=== PATIENT | female | born 1965 | race Caucasian/White ===

== ENCOUNTER 2017-05-24 17:55 | Emergency (ER) | payer OTHER ==
[2017-05-24 18:00] LABS: Glucose,Whole Blood 141 mg/dL (75-99)
[2017-05-24] MEDS ORDERED: FAMOTIDINE 20 MG/2 ML VIAL IV STA (18:00)
--- NOTE | 2017-05-24 18:04 | ED ---
General Adult HPI - General Stated complaint: Allergic Reaction Time Seen by Provider: 05/24/17 17:55 Source: RN notes reviewed - History of Present Illness Initial comments: This a 52-year-old female has a past medical history significant for an reflect reactions to bee stings. Patient states today she got stung by a bee but she had no EpiPen is because of their expense. Patient states she called EMS when EMS arrived they gave her 50 of Benadryl IV even though she took 50 orally. Patient also got 0.25 of subcu epinephrine and Solu-Medrol. Patient also received an albuterol treatment. Patient states she had tightness in her chest like always and she had a rash throughout her whole body. Patient states she does feel better now but she is extremely drowsy from the Benadryl. Patient denies any chest pain. Patient denies any shortness of breath currently. Patient denies abdominal pain. Patient denies any nausea or vomiting currently. Patient denies headache patient denies numbness weakness. Patient denies lightheadedness or dizziness. - Related Data Home Medications Medication Instructions Recorded Confirmed ALPRAZolam [ALPRAZolam] 1 mg PO BID 10/16/16 05/24/17 Dextroamphetamine/Amphetamine 20 mg PO TID 10/16/16 05/24/17 [Adderall] Sertraline HCl [Sertraline HCl] 100 mg PO DAILY 10/16/16 05/24/17 Albuterol Inhaler [Ventolin Hfa 1 - 2 puff INHALATION RT-Q6H PRN 05/24/17 Inhaler] Estradiol [Estrace] 1 mg PO DIRECTED 05/24/17 05/24/17 buPROPion SR [Wellbutrin Sr] 100 mg PO DAILY 05/24/17 05/24/17 Previous Rx's Medication Instructions Recorded EPINEPHrine [Epipen 2-Simba] 0.3 mg IM ONCE PRN #2 ml 05/24/17 predniSONE 40 mg PO DAILY #8 tab 05/24/17 Allergies Allergy/AdvReac Type Severity Reaction Status Date / Time No Known Allergies Allergy Verified 10/16/16 09:48 Review of Systems ROS Statement: Those systems with pertinent positive or pertinent negative responses have been documented in the HPI. ROS Other: All systems not noted in ROS Statement are negative. Past Medical History Past Medical History: No Reported History, Cancer Additional Past Medical History / Comment(s): OVARIAN AND SKIN CANCER History of Any Multi-Drug Resistant Organisms: None Reported Past Surgical History: Bladder Surgery, Section, Hysterectomy, Tonsillectomy, Uterine Ablation Additional Past Surgical History / Comment(s): SQUAMOUS CELL LLE REMOVED. COLONOSCOPY Past Anesthesia/Blood Transfusion Reactions: No Reported Reaction Past Psychological History: ADD/ADHD, Anxiety, Depression Smoking Status: Former smoker Past Alcohol Use History: Occasional Additional Past Alcohol Use History / Comment(s): QUIT SMOKING A TEENAGER. HAS 1 -2 BEERS NIGHTLY Past Drug Use History: None Reported - Past Family History Mother Family Medical History: Cancer Sister(s) Family Medical History: Cancer Brother(s) Family Medical History: Cancer General Exam - General Exam Comments Initial Comments: GENERAL: Patient is well-developed and well-nourished. Patient is nontoxic and well- hydrated and is in moderate distress. Patient is very tired. ENT: Neck is soft and supple. No significant lymphadenopathy is noted. Oropharynx is clear. Moist mucous membranes. Neck has full range of motion without eliciting any pain. EYES: The sclera were anicteric and conjunctiva were pink and moist. Extraocular movements were intact and pupils were equal round and reactive to light. Eyelids were unremarkable. PULMONARY: Unlabored respirations. Good breath sounds bilaterally. No audible rales rhonchi or wheezing was noted. CARDIOVASCULAR: There is a regular rate and rhythm without any murmurs gallops or rubs. ABDOMEN: Soft and nontender with normal bowel sounds. No palpable organomegaly was noted. There is no palpable pulsatile mass. SKIN: Patient's skin is erythematous on the arms chest back abdomen and legs.. NEUROLOGIC: Patient is alert and oriented x3. Cranial nerves II through XII are grossly intact. Motor and sensory are also intact. Normal speech, volume and content. Symmetrical smile. MUSCULOSKELETAL: Normal extremities with adequate strength and full range of motion. No lower extremity swelling or edema. No calf tenderness. LYMPHATICS: No significant lymphadenopathy is noted PSYCHIATRIC: Normal psychiatric evaluation. Course Vital Signs 05/24/17 05/24/17 05/24/17 17:56 18:15 18:58 Temperature 96.6 F L 96.7 F L Pulse Rate 70 77 73 Respiratory 20 20 18 Rate Blood Pressure 136/81 150/90 119/74 O2 Sat by Pulse 100 100 100 Oximetry Medical Decision Making - Medical Decision Making EKG shows normal sinus rhythm at 71 bpm VT interval is on a 42 QRS is 76 QT interval 426 QTC is 462. Patient's EKG shows no ST segment elevation or depression - Lab Data Result diagrams: 05/24/17 17:57 05/24/17 17:57 Lab Results 05/24/17 05/24/17 05/24/17 Range/Units 17:57 17:57 17:57 WBC 7.8 (3.8-10.6) k/uL RBC 4.50 (3.80-5.40) m/uL Hgb 14.7 (11.4-16.0) gm/dL Hct 43.8 (34.0-46.0) % MCV 97.4 (80.0-100.0) fL MCH 32.7 (25.0-35.0) pg MCHC 33.6 (31.0-37.0) g/dL RDW 13.0 (11.5-15.5) % Plt Count 306 (150-450) k/uL Neutrophils % 43 % Lymphocytes % 47 % Monocytes % 4 % Eosinophils % 2 % Basophils % 0 % Neutrophils # 3.3 (1.3-7.7) k/uL Lymphocytes # 3.7 (1.0-4.8) k/uL Monocytes # 0.3 (0-1.0) k/uL Eosinophils # 0.2 (0-0.7) k/uL Basophils # 0.0 (0-0.2) k/uL Sodium 139 (137-145) mmol/L Potassium 3.5 (3.5-5.1) mmol/L Chloride 107 (98-107) mmol/L Carbon Dioxide 22 (22-30) mmol/L Anion Gap 10 mmol/L BUN 8 (7-17) mg/dL Creatinine 0.69 (0.52-1.04) mg/dL Est GFR (MDRD) Af Amer >60 (>60 ml/min/1.73 sqM) Est GFR (MDRD) Non-Af >60 (>60 ml/min/1.73 sqM) Glucose 146 H (74-99) mg/dL POC Glucose (mg/dL) (75-99) mg/dL POC Glu Thermite [employer]der ID Calcium 8.7 (8.4-10.2) mg/dL Total Bilirubin 0.3 (0.2-1.3) mg/dL AST 29 (14-36) U/L ALT 40 (9-52) U/L Alkaline Phosphatase 73 (38-126) U/L Troponin I <0.012 (0.000-0.034) ng/mL Total Protein 6.0 L (6.3-8.2) g/dL Albumin 3.9 (3.5-5.0) g/dL 05/24/17 Range/Units 17:58 WBC (3.8-10.6) k/uL RBC (3.80-5.40) m/uL Hgb (11.4-16.0) gm/dL Hct (34.0-46.0) % MCV (80.0-100.0) fL MCH (25.0-35.0) pg MCHC (31.0-37.0) g/dL RDW (11.5-15.5) % Plt Count (150-450) k/uL Neutrophils % % Lymphocytes % % Monocytes % % Eosinophils % % Basophils % % Neutrophils # (1.3-7.7) k/uL Lymphocytes # (1.0-4.8) k/uL Monocytes # (0-1.0) k/uL Eosinophils # (0-0.7) k/uL Basophils # (0-0.2) k/uL Sodium (137-145) mmol/L Potassium (3.5-5.1) mmol/L Chloride (98-107) mmol/L Carbon Dioxide (22-30) mmol/L Anion Gap mmol/L BUN (7-17) mg/dL Creatinine (0.52-1.04) mg/dL Est GFR (MDRD) Af Amer (>60 ml/min/1.73 sqM) Est GFR (MDRD) Non-Af (>60 ml/min/1.73 sqM) Glucose (74-99) mg/dL POC Glucose (mg/dL) 141 H (75-99) mg/dL POC Glu Thermite [employer]der ID Santy Bailey Calcium (8.4-10.2) mg/dL Total Bilirubin (0.2-1.3) mg/dL AST (14-36) U/L ALT (9-52) U/L Alkaline Phosphatase (38-126) U/L Troponin I (0.000-0.034) ng/mL Total Protein (6.3-8.2) g/dL Albumin (3.5-5.0) g/dL Disposition Clinical Impression: Anaphylaxis Disposition: HOME SELF-CARE Condition: Good Instructions: Anaphylaxis (ED) Additional Instructions: patient is to immediately get her EpiPen's she has them with her. Patient is to return to emergency department for any difficulty breathing or throat closing. Patient states prednisone as prescribed. Patient should take Benadryl when necessary for any symptoms or rashes. Prescriptions: EPINEPHrine [Epipen 2-Simba] 0.3 mg IM ONCE PRN #2 ml PRN Reason: Dyspnea predniSONE 40 mg PO DAILY #8 tab Referrals: None,Stated [REFERRING] - 1-2 days Time of Disposition: 20:03
[2017-05-24 18:12] LABS: Basophils % (A) 0 %; CH 31.9; CHCM 32.9; Eosinophils # (A) 0.2 k/uL (0-0.7); Eosinophils % (A) 2 %; HCT 43.8 % (34.0-46.0); HDW 1.95; HGB 14.7 gm/dL (11.4-16.0); Luc # (Auto) 0.26; Luc % (Auto) 3; Lymphocytes # (A) 3.7 k/uL (1.0-4.8); Lymphocytes % (A) 47 %; MCH 32.7 pg (25.0-35.0); MCHC 33.6 g/dL (31.0-37.0); MCV 97.4 fL (80.0-100.0); Mean Platelet Volume 7.2; Monocytes # (A) 0.3 k/uL (0-1.0); Monocytes % (A) 4 %; Neutrophils # (A) 3.3 k/uL (1.3-7.7); Neutrophils % (A) 43 %; WBC 7.8 k/uL (3.8-10.6); WBC (Perox) 8.04
[2017-05-24 18:17] LABS: ALT 40 U/L (9-52); AST 29 U/L (14-36); Alkaline Phosphatase 73 U/L (38-126); Anion Gap 10 mmol/L; Blood Urea Nitrogen 8 mg/dL (7-17); Calcium 8.7 mg/dL (8.4-10.2); Carbon Dioxide 22 mmol/L (22-30); Chloride 107 mmol/L (98-107); Glucose 146 mg/dL (74-99); Non-African American GFR(MDRD) >60 (>60 ml/min/1.73 sqM); Potassium 3.5 mmol/L (3.5-5.1); Sodium 139 mmol/L (137-145); Total Bilirubin 0.3 mg/dL (0.2-1.3)
[2017-05-24 18:59] VITALS: RESP 18; TEMP 96.7
[2017-05-24 20:47] VITALS: BP 101/58; PULSE 70
== END 2017-05-24 21:38 | disposition home or self-care (01) ==
LOC: EC 17:55
DX: T63.441A Toxic effect of venom of bees, accidental (unintentional), initial encounter (principal); T78.2XXA Anaphylactic shock, unspecified, initial encounter; F90.9 Attention-deficit hyperactivity disorder, unspecified type; F32.9 Major depressive disorder, single episode, unspecified; F41.9 Anxiety disorder, unspecified; Z85.43 Personal history of malignant neoplasm of ovary; Z85.828 Personal history of other malignant neoplasm of skin; Z87.891 Personal history of nicotine dependence; Z79.890 Hormone replacement therapy; Z79.899 Other long term (current) drug therapy
CPT/HCPCS: 36415; 80053; 84484; 85025; 96374; 99284

== ENCOUNTER → 2017-09-10 | Outpatient (CLI) | payer OTHER ==
--- NOTE | 2017-09-10 08:45 | US ---
EXAMINATION TYPE: US abdomen complete DATE OF EXAM: 09/10/2017 COMPARISON: NONE CLINICAL HISTORY: 52-year-old female R10.33 Periumbilical pain. TECHNIQUE: Multiple sonographic images of the abdomen are obtained. FINDINGS: Liver Length: 17.8 cm Gallbladder Wall: 0.2 cm CBD: 0.4 cm Spleen: 8.7 cm Right Kidney: 10.7 x 3.8 x 4.8 cm Left Kidney: 11.3 x 5.4 x 4.0 cm Pancreas: Tail obscured by overlying bowel gas, visualized portions appear wnl Liver: Measuring upper limits of normal, slight increased echotexture. No focal lesion seen. Gallbladder: wnl Evidence for sonographic Bailey's sign: No CBD: wnl Spleen: Within normal limits with a hilar splenule Right Kidney: No hydronephrosis. Left Kidney: No hydronephrosis. Upper IVC: wnl Abd Aorta: wnl IMPRESSION: Borderline hepatomegaly. Slight increased echotexture suggests mild hepatic steatosis. Correlate with LFTs, lipid profile, and patient risk factors.
--- NOTE | 2017-09-10 08:54 | US ---
EXAMINATION TYPE: US pelvic limited DATE OF EXAM: 09/10/2017 COMPARISON: NONE CLINICAL HISTORY: 52-year-old female R10.33 Periumbilical pain. History of complete hysterectomy TECHNIQUE: Multiple transabdominal sonographic images of the pelvis are obtained. FINDINGS: Date of LMP: 2013 Uterus: Surgically absent Right Ovary: Surgically absent Left Ovary: Surgically absent No evident adnexal abnormality or cul-de-sac free fluid. IMPRESSION: Status post hysterectomy and bilateral oophorectomy. No adnexal abnormality or pelvic free fluid seen .
--- NOTE | 2017-09-11 08:39 | MM ---
Reason for exam: screening (asymptomatic). Last mammogram was performed 3 years and 1 month ago. History: Patient is postmenopausal, has history of ovarian cancer at age 49, and history of other cancer. Took hormonal contraceptives for 11 years beginning at age 29. Took progesterone for 3 years. Physical Findings: A clinical breast exam by your physician is recommended on an annual basis and results should be correlated with mammographic findings. MG Screening Mammo w CAD Bilateral CC and MLO view(s) were taken. Prior study comparison: August 12, 2014, bilateral MG screening mammo w CAD. June 19, 2013, bilateral digital screening mammo w/CAD. The breast tissue is extremely dense which could obscure a lesion on mammography. There is no discrete abnormality. ASSESSMENT: Negative, BI-RAD 1 RECOMMENDATION: Routine screening mammogram of both breasts in 1 year.
== END | disposition home or self-care (01) ==
LOC: RADMAMWWP 07:04
PROVIDERS: ATTEND Family Medicine
DX: Z12.31 Encounter for screening mammogram for malignant neoplasm of breast (principal); R93.2 Abnormal findings on diagnostic imaging of liver and biliary tract; R10.33 Periumbilical pain; Z90.710 Acquired absence of both cervix and uterus; Z90.722 Acquired absence of ovaries, bilateral
CPT/HCPCS: 76700; 76857; G0202

== ENCOUNTER → 2020-05-20 | Outpatient (CLI) | payer OTHER ==
--- NOTE | 2020-05-27 09:37 | MM ---
Reason for exam: screening (asymptomatic). Last mammogram was performed 2 years and 8 months ago. History: Patient is postmenopausal, has history of ovarian cancer at age 49, and history of other cancer. Took hormonal contraceptives for 11 years beginning at age 29. Took progesterone for 3 years. Physical Findings: A clinical breast exam by your physician is recommended on an annual basis and results should be correlated with mammographic findings. MG Screening Mammo w CAD Bilateral CC and MLO view(s) were taken. Prior study comparison: September 10, 2017, bilateral MG screening mammo w CAD. August 12, 2014, bilateral MG screening mammo w CAD. The breast tissue is heterogeneously dense. This may lower the sensitivity of mammography. There is chronic nodularity in the left breast. No significant changes when compared with prior studies. ASSESSMENT: Negative, BI-RAD 1 RECOMMENDATION: Routine screening mammogram of both breasts in 1 year. Patient should continue monthly self breast exams. A negative report should not preclude additional follow up of suspicious palpable abnormalities.
== END | disposition home or self-care (01) ==
LOC: RADMAMWWP 12:26
PROVIDERS: ATTEND Family Medicine
DX: Z12.31 Encounter for screening mammogram for malignant neoplasm of breast (principal)
CPT/HCPCS: 77067

== ENCOUNTER 2020-06-17 08:13 | Day surgery (SDC) | payer OTHER ==
[~2020-06-17 08:13] MED LIST: LACTATED RINGERS 1,000 ML IV SCH
[2020-06-17 08:35] VITALS: RESP 16; TEMP 96.8
[2020-06-17] MEDS ORDERED: LIDOCAINE 1% (10MG/ML) FOR IV START INTRADERMA ONE (08:45)
[2020-06-17] MEDS ORDERED: PROPOFOL 10 MG/ML 20 ML VIAL IV ONE (09:12)
[2020-06-17] MEDS ORDERED: LIDOCAINE 1% INJ 10MG/ML (20 ML MDV) ONE (09:12)
--- NOTE | 2020-06-17 09:14 | P.GSHP ---
History of Present Illness H&P Date: 06/17/20 Chief Complaint: Family history colonic Cancer This is a 55-year-old female who presents today for colonoscopy patient's strong family history of colon cancer with her mother having colon cancer. Injected complaints. Past Medical History Past Medical History: Asthma, Cancer, Eye Disorder Additional Past Medical History / Comment(s): Bilateral Glaucoma. HX OVARIAN AND SKIN CANCER. IBS. Left side abd pains, diarrhea, constipation and bloating. History of Any Multi-Drug Resistant Organisms: None Reported Past Surgical History: Bladder Surgery, Section, Hysterectomy, Tonsillectomy, Uterine Ablation Additional Past Surgical History / Comment(s): SQUAMOUS CELL REMOVED FROM LEFT CALF. COLONOSCOPY. Past Anesthesia/Blood Transfusion Reactions: No Reported Reaction Past Psychological History: ADD/ADHD, Anxiety, Depression, PTSD Smoking Status: Current every day smoker Past Alcohol Use History: Daily Additional Past Alcohol Use History / Comment(s): SMOKED A TEENAGER, quit and then started smoking again 6 yrs ago, 6 cigarettes daily. Has 2-3 BEERS daily. Past Drug Use History: Marijuana Additional Drug Use History / Comment(s): Occasional Marijuana use. Aware no alcohol or Marijuana 24 hrs prior to procedure. - Past Family History Mother Family Medical History: Blood Disorder, Cancer Additional Family Medical History / Comment(s): "Rare blood disorder." Sister(s) Family Medical History: Cancer Brother(s) Family Medical History: Cancer Medications and Allergies Home Medications Medication Instructions Recorded Confirmed Type ALPRAZolam 1 mg PO TID PRN 10/16/16 06/14/20 History Sertraline HCl 100 mg PO DAILY 10/16/16 06/14/20 History EPINEPHrine [Epipen 2-Simba] 0.3 mg IM ONCE PRN #2 ml 05/24/17 06/14/20 Rx buPROPion SR [Wellbutrin Sr] 100 mg PO DAILY 05/24/17 06/14/20 History estradioL [Estrace] 1 mg PO DIRECTED 05/24/17 06/14/20 History Biotin 5,000 mcg PO DAILY 06/14/20 06/14/20 History Budesonide/Formoterol Fumarate 1 puff INHALATION DIRECTED PRN 06/14/20 06/14/20 History [Symbicort 80-4.5 Mcg Inhaler] Cholecalciferol [Vitamin D3 (25 1,000 unit PO DAILY 06/14/20 06/14/20 History Mcg = 1000 Iu)] Dextroamphetamine/Amphetamine 30 mg PO DAILY 06/14/20 06/14/20 History [Adderall] Doxycycline [Vibramycin] 100 mg PO DAILY 06/14/20 06/14/20 History Fluticasone Nasal [place] [Flonase 2 spr EA NOSTRIL DAILY 06/14/20 06/14/20 History Nasal [place]] Multivitamins, Thera [Multivitamin 1 tab PO DAILY 06/14/20 06/14/20 History (formulary)] Vortioxetine Hydrobromide 10 mg PO DAILY 06/14/20 06/14/20 History [Trintellix] Zantac([place] Dose) 1 dose PO BID 06/14/20 06/14/20 History Allergies Allergy/AdvReac Type Severity Reaction Status Date / Time bee venom protein (honey bee) Allergy Anaphylaxis Verified 06/17/20 08:30 Surgical - Exam Vital Signs Temp Pulse Resp BP Pulse Ox 96.8 F L 66 16 128/77 100 06/17/20 08:33 06/17/20 08:33 06/17/20 08:33 06/17/20 08:33 06/17/20 08:33 - General well developed, well nourished, no distress - Eyes PERRL - ENT normal pinna, normal nares - Neck no masses - Respiratory normal expansion - Cardiovascular Rhythm: regular - Abdomen Abdomen: soft, non tender Assessment and Plan Assessment: Family history: Cancer. We'll perform colonoscopy.
--- NOTE | 2020-06-17 09:27 | P.OP ---
Date of Procedure: 06/17/20 Preoperative Diagnosis: Family history of colon cancer Postoperative Diagnosis: Normal colonoscopy Procedure(s) Performed: Colonoscopy Anesthesia: MAC Surgeon: Lj Maynard Pathology: none sent Condition: stable Disposition: PACU Description of Procedure: PROCEDURE: The patient was placed on the endoscopy table in the lateral position. Digital rectal examination was performed which revealed no abnormalities. . Flexible colonoscope was then placed in the patient's anus and passed throughout the entire colon. The ileocecal valve was visualized. The cecum, ascending, transverse, descending and sigmoid colon were normal. The rectum was normal as well. There were no masses, polyps or diverticula noted in the entire colon. SUMMARY OF FINDINGS: Normal colonoscopy.
[2020-06-17 10:05] VITALS: BP 135/77; PULSE 58
== END 2020-06-17 10:13 | disposition home or self-care (01) ==
LOC: ORWHC2ENDO 08:13
PROVIDERS: ATTEND Surgery
DX: Z80.0 Family history of malignant neoplasm of digestive organs (principal); J45.909 Unspecified asthma, uncomplicated; H40.9 Unspecified glaucoma; Z85.43 Personal history of malignant neoplasm of ovary; Z85.828 Personal history of other malignant neoplasm of skin; K58.1 Irritable bowel syndrome with constipation; K58.0 Irritable bowel syndrome with diarrhea; Z90.710 Acquired absence of both cervix and uterus; Z98.890 Other specified postprocedural states; F90.9 Attention-deficit hyperactivity disorder, unspecified type; F41.9 Anxiety disorder, unspecified; F32.9 Major depressive disorder, single episode, unspecified; F43.10 Post-traumatic stress disorder, unspecified; F17.210 Nicotine dependence, cigarettes, uncomplicated; Z83.2 Family history of diseases of the blood and blood-forming organs and certain disorders involving the immune mechanism; Z80.8 Family history of malignant neoplasm of other organs or systems; Z79.3 Long term (current) use of hormonal contraceptives; Z79.51 Long term (current) use of inhaled steroids; Z79.899 Other long term (current) drug therapy; Z91.030 Bee allergy status
CPT/HCPCS: 45378; J2001; J2704

== ENCOUNTER → 2020-08-04 | Outpatient (CLI) | payer OTHER ==
--- NOTE | 2020-08-04 13:46 | CT ---
EXAMINATION TYPE: CT abdomen pelvis wo con DATE OF EXAM: 08/04/2020 COMPARISON: None HISTORY: LLQ pain, history of IBS CT DLP: 267.9 mGycm Examination of the solid and hollow viscera is limited given the lack of contrast. FINDINGS: LUNG BASES: No evidence for nodule. No evidence for infiltrate. LIVER/GB: The gallbladder is unremarkable. No space-occupying hepatic lesion. PANCREAS: No pancreatic mass identified. No inflammatory process seen. SPLEEN: No evidence for splenomegaly. No intrasplenic lesions seen. ADRENALS: No adrenal nodules identified. No evidence for thickening. KIDNEYS: No evidence for renal mass. No nephrolithiasis. No hydronephrosis. BOWEL: Appendix has a normal appearance. No evidence of bowel obstruction. No inflammatory process. Lymph nodes: No evidence for adenopathy greater than 1 cm. Abdominal aorta: Atheromatous changes seen. No evidence for aneurysm. Genital organs: No significant abnormality. Other: No significant abnormality. IMPRESSION: NO DISTINCT ABNORMALITY APPRECIATED.
== END | disposition home or self-care (01) ==
LOC: RADCTMAIN 11:23
PROVIDERS: ATTEND Family Medicine
DX: R10.9 Unspecified abdominal pain (principal)
CPT/HCPCS: 74176

== ENCOUNTER 2020-08-11 08:24 | Day surgery (SDC) | payer OTHER ==
[2020-08-09 13:47] VITALS: BMI 22.1
[~2020-08-11 08:24] MED LIST changes: +LIDOCAINE 1% (10MG/ML) FOR IV START INTRADERMA PRN
[2020-08-11 08:58] VITALS: TEMP 97.5
[2020-08-11] MEDS ORDERED: GLYCOPYRROLATE 0.2 MG/ML 2 ML VIAL ONE (09:33)
[2020-08-11] MEDS ORDERED: LIDOCAINE 1% INJ 10MG/ML (20 ML MDV) ONE (09:33)
[2020-08-11] MEDS ORDERED: PROPOFOL 10 MG/ML 20 ML VIAL IV ONE (09:33)
--- NOTE | 2020-08-11 09:46 | P.PCN ---
Date of Procedure: 08/11/20 Procedure(s) Performed: BRIEF HISTORY: Patient is a 55-year-old, pleasant, white female scheduled for an upper endoscopy as a part of evaluation of epigastric and left upper quadrant abdominal pain for the last 2 years duration. She tried Prilosec with no help PROCEDURE PERFORMED: Esophagogastroduodenoscopywith biopsy. PREOPERATIVE DIAGNOSIS: epigastric and left upper quadrant abdominal pain of 2 years duration. IV sedation per anesthesia. PROCEDURE: After informed consent was obtained, the patient was brought into the endoscopy unit. IV sedation was administered by Anesthesia under continuous monitoring. Initially the Olympus GIF-140 video endoscope was inserted into the mouth. Esophagus intubated without any difficulty. It was gradually advanced into the stomach and duodenum and carefully examined. The bulb and the second part of the duodenum appeared normal.biopsies were done from the duodenum to rule out celiac disease. The scope at this time was withdrawn to the stomach, adequately insufflated with air, and upon careful examination, mucosa of the antrum,had mild patchy areas of erythema which was biopsied. The body, cardia and the fundus appeared normal. The scope was then withdrawn into the esophagus. The GE junction was located at 39 cm from the incisors. The esophagus appeared normal. There were no erosions or ulcerations seen , biopsies were done from the distal esophagusand the patient tolerated the procedure well. IMPRESSION: 1. Mild antral gastritis 2. no evidence of esophagitis or peptic ulcer disease. RECOMMENDATIONS: The findings of this examination were discussed with the patient as well as her family. She was advised to follow with the biopsy result s.
[2020-08-11 10:04] VITALS: BP 128/83; PULSE 75; RESP 18
== END 2020-08-11 11:13 | disposition home or self-care (01) ==
LOC: ORWHC2ENDO 08:24
PROVIDERS: ATTEND Internal Medicine Gastroenterology
DX: K29.50 Unspecified chronic gastritis without bleeding (principal); F17.200 Nicotine dependence, unspecified, uncomplicated; F32.9 Major depressive disorder, single episode, unspecified; Z79.899 Other long term (current) drug therapy
CPT/HCPCS: 88305; 43239; J2001; J2704; 88342

== ENCOUNTER → 2021-08-30 | Outpatient (CLI) | payer OTHER ==
--- NOTE | 2021-09-01 14:32 | MM ---
Reason for exam: screening (asymptomatic). Last mammogram was performed 1 year and 3 months ago. History: Patient is postmenopausal, has history of ovarian cancer at age 49, and history of other cancer. Took hormonal contraceptives for 11 years beginning at age 29. Took progesterone for 3 years. Physical Findings: A clinical breast exam by your physician is recommended on an annual basis and results should be correlated with mammographic findings. MG Screening Mammo w CAD Bilateral CC and MLO view(s) were taken. Prior study comparison: May 20, 2020, bilateral MG screening mammo w CAD. September 10, 2017, bilateral MG screening mammo w CAD. The breast tissue is extremely dense which could obscure a lesion on mammography. There is chronic nodularity in the left breast. No significant changes when compared with prior studies. ASSESSMENT: Benign, BI-RAD 2 RECOMMENDATION: Routine screening mammogram of both breasts in 1 year. Patient should continue monthly self breast exams. A negative report should not preclude additional follow up of suspicious palpable abnormalities.
== END | disposition home or self-care (01) ==
LOC: RADMAMWWP 13:26
PROVIDERS: ATTEND Family Medicine
DX: Z12.31 Encounter for screening mammogram for malignant neoplasm of breast (principal); Z78.0 Asymptomatic menopausal state
CPT/HCPCS: 77067

== ENCOUNTER 2022-03-02 22:02 | Inpatient (IN) | payer MEDICAID, OTHER ==
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
[2022-03-03] MEDS ORDERED: ACETAMINOPHEN TAB 325 MG TAB PO STA (00:09)
[2022-03-03 00:26] LABS: Amphetamine Screen,Urine Not Detected (NotDetected); Barbiturate Screen,Urine Not Detected (NotDetected); Benzodiazepines Screen,Urine Detected (NotDetected); Cocaine Screen,Urine Not Detected (NotDetected); Methadone Screen, Urine Not Detected (NotDetected); Opiate Screen,Urine Not Detected (NotDetected); Oxycodone Screen, Urine Not Detected (NotDetected); Phencyclidine Screen,Urine Not Detected (NotDetected); Tricyclic Antidepressant,Urine Not Detected (NotDetected); Urn Cannabinoid Scrn Not Detected (NotDetected)
[2022-03-03] MEDS ORDERED: MAG HYDROX/AL HYDROX/SIMETH 30 ML CUP PO PRN (04:21)
[2022-03-03] MEDS ORDERED: ACETAMINOPHEN TAB 325 MG TAB PO PRN (04:21)
[2022-03-03] MEDS ORDERED: HALOPERIDOL LACTATE 5 MG/ML 1 ML VIAL IM PRN (04:21)
[2022-03-03] MEDS ORDERED: MAGNESIUM HYDROXIDE 2,400 MG/10 ML CUP PO PRN (04:21)
[2022-03-03] MEDS ORDERED: haloperidoL 5 MG TAB PO PRN (04:25)
[2022-03-03] MEDS ORDERED: LORazepam 2 MG/ML INJ IM PRN (04:36)
[2022-03-03 04:45] LABS: Appearance,Urine Clear (Clear); Bilirubin,Urine Negative (Negative); Blood,Urine Negative (Negative); Color,Urine Colorless; Glucose,Urine (UA) Negative (Negative); Ketones,Urine Negative (Negative); Leukocyte Esterase,Urine Negative (Negative); Nitrite,Urine Negative (Negative); PH, Urine 6.5 (5.0-8.0); Protein,Urine Negative (Negative); Specific Gravity,Urine 1.005 (1.001-1.035); Urobilinogen,Urine <2.0 mg/dL (<2.0)
[2022-03-03] MEDS ORDERED: ZIPRASIDONE 20 MG VIAL IM STA (05:04)
[2022-03-03] MEDS ORDERED: traZODone HCL 100 MG TAB PO PRN (12:46)
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
[2022-03-03] MEDS: SERTRALINE 50 MG TAB PO SCH (13:45)
[2022-03-03] MEDS: lamoTRIgine 25 MG TAB PO SCH ×2 (13:45→21:21)
[2022-03-03] MEDS: clonazePAM 1 MG TAB PO PRN (21:22)
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
[2022-03-04 07:47] LABS: Basophils # (A) 0.1 k/uL (0-0.2); Basophils % (A) 1 %; Eosinophils # (A) 0.2 k/uL (0-0.7); Eosinophils % (A) 2 %; HCT 47.1 % (34.0-46.0); HGB 14.7 gm/dL (11.4-16.0); Lymphocytes # (A) 2.5 k/uL (1.0-4.8); Lymphocytes % (A) 25 %; MCH 30.1 pg (25.0-35.0); MCHC 31.3 g/dL (31.0-37.0); MCV 96.4 fL (80.0-100.0); Mean Platelet Volume 8.4; Monocytes # (A) 0.4 k/uL (0-1.0); Monocytes % (A) 4 %; Neutrophils # (A) 6.8 k/uL (1.3-7.7); Neutrophils % (A) 67 %; Platelet Count 264 k/uL (150-450); RBC 4.89 m/uL (3.80-5.40); RDW 12.5 % (11.5-15.5); WBC 10.2 k/uL (3.8-10.6)
[2022-03-04 07:59] LABS: ALT 20 U/L (4-34); AST 18 U/L (14-36); African American GFR (CKD) >90 (>60 ml/min/1.73 sqM); Albumin 4.5 g/dL (3.5-5.0); Alkaline Phosphatase 87 U/L (38-126); Anion Gap 10 mmol/L; Blood Urea Nitrogen 11 mg/dL (7-17); Calcium 9.7 mg/dL (8.4-10.2); Carbon Dioxide 25 mmol/L (22-30); Chloride 104 mmol/L (98-107); Glucose 111 mg/dL (74-99); Non-African American GFR(CKD) >90 (>60 ml/min/1.73 sqM); Potassium 4.7 mmol/L (3.5-5.1); Sodium 139 mmol/L (137-145); Total Bilirubin 0.8 mg/dL (0.2-1.3); Total Protein 7.4 g/dL (6.3-8.2)
[2022-03-04] MEDS: SYMBICORT 160-4.5 MCG INHALER (MHU) INHALATION SCH ×2 (08:09→19:41)
[2022-03-04] MEDS: ATORVASTATIN 40 MG TAB PO SCH (08:09)
[2022-03-04] MEDS: lamoTRIgine 25 MG TAB PO SCH ×2 (08:10→19:41)
[2022-03-04] MEDS: SERTRALINE 50 MG TAB PO SCH (08:10)
--- NOTE | 2022-03-04 13:53 | P.PN ---
Progress Note - Text Progress Note Date: 03/04/22 Interval history: Patient was directable and agreeable to speak with copywriter. She reports she feels "a lot better" because group is helpful here and she was not taking her medications at home. She reports she was prescribed Trintellix (started about a year ago) as an outpatient but stopped taking it a week prior to admission because she reports it caused nausea/vomiting. At this time patient denies any suicidal or homicidal ideations intent or plan. Denies any auditory or visual hallucinations. Patient denies any side effects from the medications and has been compliant with meds. She feels the Zoloft, Lamictal and Klonopin is helping her. She reports this was the first suicide attempt. She was on the Zoloft prior to the Trintellix, and reports she was previously stable on the Zoloft for about 15 years. She denies depressed mood today, but admits to excessive worrying. Mental status exam: General Appearance: Patient appears to be stated age is alert, directable, and cooperative. Behavior: No agitated behavior. Patient is directable, appears anxious. Speech: Patient's speech is fluent and nonpressured. Mood/Affect: Mood is improving mildly, affect is congruent and constricted. Suicidality/Homicidality: Patient denies having any suicidal or homicidal ideation intent or plan. Perceptions: Patient denies any auditory or visual hallucinations. Though content/process: There is no evidence of any delusional thought content and thought process is linear and goal-directed. Memory and concentration: AOX3, grossly intact for the purposes of this session Judgment and insight: Improving mildly Assessment/Plan: Continue with current diagnosis. Patient continues to meet criteria for inpatient psychiatric admission for symptom stabilization and safety. Will increase Zoloft to 100 mg daily starting tomorrow (Sunday) for depression/anxiety. Monitor for medication compliance and for any psychotropic medication side effects. Will continue to monitor ongoing response to treatment. Encouraged participation in milieu.
[2022-03-04 16:19] LABS: Chol/HDL Ratio 2.39 Ratio; LDL Cholesterol,Calculated 124.3 mg/dL (0.0-131.0); VLDL Calculation 13.12 mg/dL (5.00-40.00)
[2022-03-04] MEDS: clonazePAM 1 MG TAB PO PRN (23:02)
[2022-03-05] MEDS: SERTRALINE 100 MG TAB PO SCH (07:42)
[2022-03-05] MEDS: ATORVASTATIN 40 MG TAB PO SCH (07:42)
[2022-03-05] MEDS: SYMBICORT 160-4.5 MCG INHALER (MHU) INHALATION SCH ×2 (07:42→20:36)
[2022-03-05] MEDS: lamoTRIgine 25 MG TAB PO SCH ×2 (07:42→20:36)
--- NOTE | 2022-03-05 15:23 | P.PN ---
Progress Note - Text Progress Note Date: 03/05/22 Interval history: Patient was directable and agreeable to speak with radio script writer. She attended groups today, and reports "it was fun, played bingo, talked about our goals." She denies depressed mood. She reports her mood is "great". The Zoloft was increased to 100 mg daily for th morning and she reports she is tolerating the dose well. At this time patient denies any suicidal or homicidal ideations intent or plan. She denies any auditory or visual hallucinations. Patient denies any side effects from the medications and has been compliant with meds. Mental status exam: General Appearance: Patient appears to be stated age is alert, directable, and cooperative. Behavior: No agitated behavior. Patient is directable, appears slightly anxious. Speech: Patient's speech is fluent and nonpressured. Mood/Affect: Mood is "great", affect is congruent and constricted. Suicidality/Homicidality: Patient denies having any suicidal or homicidal ideation intent or plan. Perceptions: Patient denies any auditory or visual hallucinations. Though content/process: There is no evidence of any delusional thought content and thought process is linear and goal-directed. Memory and concentration: AOX3, grossly intact for the purposes of this session Judgment and insight: Improving mildly Assessment/Plan: Continue with current diagnosis. She plans to sign voluntary and will discuss this with the primary team tomorrow. Patient continues to meet criteria for inpatient psychiatric admission for symptom stabilization and safety. Continue Zoloft 100 mg daily for depression/anxiety. Monitor for medication compliance and for any psychotropic medication side effects. Will continue to monitor ongoing response to treatment. Encouraged participation in milieu.
[2022-03-05] MEDS: clonazePAM 1 MG TAB PO PRN (20:36)
[2022-03-06 04:49] VITALS: BP 116/81; PULSE 94; RESP 14; TEMP 97
[2022-03-06] MEDS: SYMBICORT 160-4.5 MCG INHALER (MHU) INHALATION SCH (09:01)
[2022-03-06] MEDS: ATORVASTATIN 40 MG TAB PO SCH (09:01)
[2022-03-06] MEDS: lamoTRIgine 25 MG TAB PO SCH (09:02)
[2022-03-06] MEDS: SERTRALINE 100 MG TAB PO SCH (09:02)
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
[2022-03-06] MEDS ORDERED: lamoTRIgine 25 MG TAB PO SCH (21:00)
== END 2022-03-06 14:15 | disposition home or self-care (01) | DRG 885 ==
LOC: EC 22:02 → 3MHU 03-03 04:19
PROVIDERS: ADMIT Psychiatry & Neurology Psychiatry; ATTEND Psychiatry & Neurology Psychiatry
DX: F39 Unspecified mood [affective] disorder (principal); F23 Brief psychotic disorder; R45.851 Suicidal ideations; E78.5 Hyperlipidemia, unspecified; F12.90 Cannabis use, unspecified, uncomplicated; F17.210 Nicotine dependence, cigarettes, uncomplicated; F43.10 Post-traumatic stress disorder, unspecified; G47.00 Insomnia, unspecified; J45.909 Unspecified asthma, uncomplicated; K58.9 Irritable bowel syndrome, unspecified; R45.850 Homicidal ideations; Z79.51 Long term (current) use of inhaled steroids; Z79.890 Hormone replacement therapy; Z79.899 Other long term (current) drug therapy; Z85.828 Personal history of other malignant neoplasm of skin; Z90.710 Acquired absence of both cervix and uterus; Z91.410 Personal history of adult physical and sexual abuse; Z92.21 Personal history of antineoplastic chemotherapy; Z20.822 Contact with and (suspected) exposure to COVID-19
CPT/HCPCS: 36415; 80053; 80061; 80306; 80320; 81003; 83036; 84443; 85025; 87635; 99285